=== PATIENT | male | born 2000 | race Two or more races ===

== ENCOUNTER 2023-12-02 18:22 | Emergency (ER) | payer MEDICAID, OTHER ==
[~2023-12-02] VITALS: Ht 170.2 cm; Wt 60.0 kg
[2023-12-02 19:16] VITALS: RESP 18; TEMP 98.6
[2023-12-02] MEDS ORDERED: ACET500T58 PO (20:20)
[2023-12-02 20:22] VITALS: BP 109/63; PULSE 75; O2SAT 99
[2023-12-02] MEDS: ONDANSETRON ODT 4 MG TAB PO ONE (20:41)
== END 2023-12-03 00:42 | disposition home or self-care (01) ==
LOC: ER 18:22
DX: S83.92XA Sprain of unspecified site of left knee, initial encounter (principal); S09.90XA Unspecified injury of head, initial encounter; Z98.890 Other specified postprocedural states; Z79.899 Other long term (current) drug therapy; V29.99XA Rider (driver) (passenger) of other motorcycle injured in unspecified traffic accident, initial encounter; Y93.89 Activity, other specified; Y92.89 Other specified places as the place of occurrence of the external cause; Y99.8 Other external cause status
CPT/HCPCS: 29505; 70450; 73562; 99284; Q0162